=== PATIENT | male | born 1960 | race Caucasian/White ===

== ENCOUNTER 2021-03-31 04:47 | Inpatient (IN) | payer OTHER ==
[2021-03-31] VITALS (9 sets, daily range): BP systolic 89–147; BP diastolic 55–92
[~2021-03-31] VITALS: Ht 177.8 cm; Wt 68.0 kg
[2021-03-31] MEDS ORDERED: CEFTRIAXONE 2 GM in SODIUM CHLORIDE 0.9% 100 ML IV ONE (05:00)
[2021-03-31] MEDS ORDERED: DEXAMETHASONE SOD PHOS 10 MG/1 ML VIAL IV ONE (05:00)
[2021-03-31] MEDS ORDERED: ALBUTEROL SULF 0.083% NEB SOLN 3 ML NEB NEB STA (05:03)
[2021-03-31] MEDS ORDERED: DEXAMETHASONE SOD PHOS 10 MG/1 ML VIAL ONE (05:10)
[2021-03-31] MEDS ORDERED: CEFTRIAXONE 1 GM VIAL ONE (05:11)
[2021-03-31] MEDS ORDERED: SODIUM CHLORIDE 0.9% 250ML 250 ML ONE (05:11)
[2021-03-31] MEDS ORDERED: SODIUM CHLORIDE 0.9% 50ML 50 ML ONE (05:11)
[2021-03-31] MEDS ORDERED: CEFTRIAXONE 2 GM VIAL ONE (05:12)
[2021-03-31] MEDS ORDERED: IPRATROPIUM BROMIDE 0.02% 2.5 ML NEB NEB ONE (05:15)
[2021-03-31] MEDS ORDERED: ALBUTEROL/IPRATROPIUM 3 ML NEB ONE (05:16)
[2021-03-31 05:18] LABS: BASOPHILS # (AUTO) 0.1 (0.0-0.1); BASOPHILS % 0.2 % (0.0-1.0); HEMATOCRIT 40.6 % (38.2-49.6); HEMOGLOBIN 12.9 g/dL (14.0-18.0); LYMPHOCYTES # (AUTO) 1.5 (1.0-3.2); LYMPHOCYTES % 6.7 % (18.0-39.1); MEAN CORPUSCULAR HEMOGLOBIN 30.1 pg (28-32); MEAN CORPUSCULAR HGB CONC 31.8 g/dL (31-35); MEAN CORPUSCULAR VOLUME 94.6 fL (81-99); MONOCYTES # (AUTO) 2.6 (0.2-0.8); MONOCYTES % 11.5 % (4.4-11.3); NEUTROPHILS # (AUTO) 18.1 (2.1-6.9); NEUTROPHILS % 79.8 % (38.7-80.0); PLATELET COUNT 349 x10e3/uL (140-360); RED BLOOD COUNT 4.29 x10e6/uL (4.3-5.7); RED CELL DISTRIBUTION WIDTH 16.4 % (11.7-14.4)
[2021-03-31 05:34] LABS: ALBUMIN 3.5 g/dL (3.5-5.0); ALBUMIN/GLOBULIN RATIO 0.8 (0.8-2.0); ANION GAP 33.8 mmol/L (8-16); CALCIUM 10.5 mg/dL (8.4-10.2); CREATININE, SERUM 2.22 mg/dL (0.72-1.25); POTASSIUM 5.8 mmol/L (3.5-5.1)
[2021-03-31 05:40] LABS: CREATINE KINASE MB 3.6 ng/mL (0-5.0)
[2021-03-31 05:43] LABS: ABG HCO3 16 mmol/L (22-26); ABG PCO2 25 mmHg (35-45); ABG PH 7.41 (7.35-7.45); ABG PO2 232 mmHg (80-105)
[2021-03-31 05:44] LABS: ABG TCO2 17
[2021-03-31] MEDS ORDERED: SODIUM CHLORIDE 0.9% 500ML 500 ML ONE (06:17)
[2021-03-31] MEDS ORDERED: NOREPINEPHRINE 8 MG/D5W 250 ML 250 ML ONE (06:18)
[2021-03-31] MEDS ORDERED: SODIUM CHLORIDE 0.9% 1000ML 1,000 ML IV STA (06:23)
[2021-03-31] MEDS ORDERED: ENOXAPARIN INJ 80 MG/0.8 ML SYR SC STA (06:27)
[2021-03-31 07:11] LABS: INR 1.32; PROTHROMBIN TIME 16.6 seconds (11.9-14.5)
[2021-03-31 07:12] LABS: PARTIAL THROMBOPLASTIN TIME 28.6 seconds (23.8-35.5)
[2021-03-31 07:30] LABS: CLARITY,URINE CLEAR (CLEAR); COLOR,URINE YELLOW (YELLOW); LEUKOCYTE ESTERASE ,URINE NEGATIVE (NEGATIVE); NITRITE,URINE NEGATIVE (NEGATIVE)
[2021-03-31] MEDS ORDERED: SODIUM CHLORIDE 0.9% 1000ML 1,000 ML IV ONE (07:30)
[2021-03-31 07:31] LABS: KETONES,URINE TRACE (NEGATIVE); PROTEIN,URINE DIPSTICK TRACE (NEGATIVE); URINE UROBILINOGEN 0.2 mg/dL (0.2 - 1)
[2021-03-31 07:39] LABS: BACTERIA,URINE RARE /HPF; EPITHELIAL CELLS,URINE FEW /LPF; RBC,URINE 0-5 /HPF (0-5); WBC,URINE (MAN) 0-5 /HPF (0-5)
[2021-03-31] MEDS ORDERED: LIDOCAINE HCL 2% LOCAL 20 ML VIAL ONE ×2 (09:53→10:09)
[2021-03-31] MEDS ORDERED: MIDAZOLAM HCL 2 MG/2 ML VIAL ONE (09:53)
[2021-03-31] MEDS ORDERED: IOPAMIDOL 370 MG/ML 200 ML INFUS..BTL INJ ONE (09:53)
[2021-03-31] MEDS ORDERED: HEPARIN SOD (PORCINE) 1000 UNIT/ML 30ML ONE (09:53)
[2021-03-31] MEDS ORDERED: FENTANYL CITRATE/PF 100MCG/2 ML INJ ONE (09:53)
[2021-03-31] MEDS ORDERED: HEPARIN SOD/SOD CHLORIDE 0 ML ONE (09:53)
[2021-03-31] MEDS ORDERED: SODIUM CHLORIDE 0.9% 1000ML 0 ML ONE (09:54)
[2021-03-31 11:44] LABS: BASOPHILS % 0.2 % (0.0-1.0); HEMATOCRIT 35.3 % (38.2-49.6); HEMOGLOBIN 11.3 g/dL (14.0-18.0); LYMPHOCYTES # (AUTO) 0.8 (1.0-3.2); LYMPHOCYTES % 4.3 % (18.0-39.1); MEAN CORPUSCULAR HEMOGLOBIN 30.3 pg (28-32); MEAN CORPUSCULAR VOLUME 94.6 fL (81-99); MONOCYTES # (AUTO) 1.3 (0.2-0.8); MONOCYTES % 6.9 % (4.4-11.3); NEUTROPHILS # (AUTO) 15.6 (2.1-6.9); NEUTROPHILS % 86.5 % (38.7-80.0); PLATELET COUNT 270 x10e3/uL (140-360); RED BLOOD COUNT 3.73 x10e6/uL (4.3-5.7); RED CELL DISTRIBUTION WIDTH 15.9 % (11.7-14.4)
[2021-03-31] MEDS: ALBUTEROL SULF 0.083% NEB SOLN 3 ML NEB NEB SCH ×4 (12:00→23:00)
[2021-03-31] MEDS: IPRATROPIUM BROMIDE 0.02% 2.5 ML NEB NEB SCH ×3 (12:00→23:00)
[2021-03-31 12:11] LABS: ALBUMIN 3.4 g/dL (3.5-5.0); ALBUMIN/GLOBULIN RATIO 0.9 (0.8-2.0); ANION GAP 28.9 mmol/L (8-16); CALCIUM 9.5 mg/dL (8.4-10.2); CREATININE, SERUM 2.4 mg/dL (0.72-1.25); POTASSIUM 5.9 mmol/L (3.5-5.1)
[2021-03-31 12:35] LABS: CREATINE KINASE MB 4.9 ng/mL (0-5.0)
[2021-03-31 14:32] LABS: BODY FLUID APPEARANCE TURBID; BODY FLUID COLOR RED; BODY FLUID TYPE PERICARDIAL
[2021-03-31 15:06] LABS: CREATINE KINASE MB 7.3 ng/mL (0-5.0)
[2021-03-31 15:09] LABS: RBC,BODY FLUID 3042000 cells/uL; WBC,BODY FLUID 1800 cells/uL
[2021-03-31 15:27] LABS: LYMPHOCYTES,BODY FLUID 47 %; MONO/MACROPHG,BODY FLUID 11 %; NEUTROPHILS,BODY FLUID 42 %
[2021-04-01] VITALS (24 sets, daily range): BP systolic 88–115; BP diastolic 67–82
[2021-04-01] MEDS: ALBUTEROL SULF 0.083% NEB SOLN 3 ML NEB NEB SCH ×2 (02:29→07:48)
[2021-04-01 05:32] LABS: BASOPHILS % 0.2 % (0.0-1.0); HEMATOCRIT 37.7 % (38.2-49.6); HEMOGLOBIN 12.1 g/dL (14.0-18.0); LYMPHOCYTES % 5.7 % (18.0-39.1); MEAN CORPUSCULAR HEMOGLOBIN 30.1 pg (28-32); MEAN CORPUSCULAR HGB CONC 32.1 g/dL (31-35); MEAN CORPUSCULAR VOLUME 93.8 fL (81-99); MONOCYTES # (AUTO) 1.4 (0.2-0.8); MONOCYTES % 7.7 % (4.4-11.3); NEUTROPHILS # (AUTO) 14.9 (2.1-6.9); NEUTROPHILS % 85.1 % (38.7-80.0); PLATELET COUNT 272 x10e3/uL (140-360); RED BLOOD COUNT 4.02 x10e6/uL (4.3-5.7); RED CELL DISTRIBUTION WIDTH 16.9 % (11.7-14.4)
[2021-04-01 06:07] LABS: ALBUMIN/GLOBULIN RATIO 0.8 (0.8-2.0); ANION GAP 24.6 mmol/L (8-16); CALCIUM 9.1 mg/dL (8.4-10.2); POTASSIUM 5.6 mmol/L (3.5-5.1)
[2021-04-01] MEDS: IPRATROPIUM BROMIDE 0.02% 2.5 ML NEB NEB SCH (07:48)
[2021-04-01] MEDS: CEFTRIAXONE 2 GM in SODIUM CHLORIDE 0.9% 100 ML IV SCH (08:14)
[2021-04-01] MEDS ORDERED: ALBUTEROL SULF 0.083% NEB SOLN 3 ML NEB NEB PRN (12:00)
[2021-04-01] MEDS ORDERED: SODIUM CHLORIDE 0.9% 1000ML 1,000 ML IV ONE (12:00)
[2021-04-01] MEDS ORDERED: ACETAMINOPHEN 325 MG TAB PO PRN (12:00)
[2021-04-01] MEDS ORDERED: IPRATROPIUM BROMIDE 0.02% 2.5 ML NEB NEB PRN (12:00)
[2021-04-01] MEDS: LORAZEPAM 0.5 MG TAB PO PRN (19:50)
[2021-04-01] MEDS ORDERED: ZOLPIDEM TARTRATE 5 MG TAB PO PRN (21:00)
[2021-04-02] VITALS (24 sets, daily range): BP systolic 95–111; BP diastolic 54–89
[2021-04-02] MEDS ORDERED: DIGOXIN INJ 0.25 MG/ML 2 ML AMP IV ONE (06:30)
[2021-04-02 06:53] LABS: BASOPHILS % 0.2 % (0.0-1.0); HEMATOCRIT 39.4 % (38.2-49.6); HEMOGLOBIN 12.7 g/dL (14.0-18.0); LYMPHOCYTES # (AUTO) 0.8 (1.0-3.2); MEAN CORPUSCULAR HEMOGLOBIN 30.2 pg (28-32); MEAN CORPUSCULAR HGB CONC 32.2 g/dL (31-35); MEAN CORPUSCULAR VOLUME 93.8 fL (81-99); MONOCYTES # (AUTO) 1.7 (0.2-0.8); MONOCYTES % 8.6 % (4.4-11.3); NEUTROPHILS # (AUTO) 16.7 (2.1-6.9); NEUTROPHILS % 86.1 % (38.7-80.0); PLATELET COUNT 277 x10e3/uL (140-360); RED CELL DISTRIBUTION WIDTH 17.7 % (11.7-14.4)
[2021-04-02 07:09] LABS: ALBUMIN 3.3 g/dL (3.5-5.0); ALBUMIN/GLOBULIN RATIO 1.1 (0.8-2.0); ANION GAP 21.1 mmol/L (8-16); CALCIUM 9.2 mg/dL (8.4-10.2); CREATININE, SERUM 1.42 mg/dL (0.72-1.25); POTASSIUM 5.1 mmol/L (3.5-5.1)
[2021-04-02] MEDS: METOPROLOL TARTRATE 25 MG TAB PO SCH ×3 (07:40→17:49)
[2021-04-02] MEDS: LORAZEPAM 0.5 MG TAB PO PRN (07:40)
[2021-04-02] MEDS: CEFTRIAXONE 2 GM in SODIUM CHLORIDE 0.9% 100 ML IV SCH (07:59)
[2021-04-02] MEDS ORDERED: DIGOXIN INJ 0.25 MG/ML 2 ML AMP IV NR (08:15)
[2021-04-02] MEDS ORDERED: METOPROLOL TARTRATE INJ 1 MG/ML VIAL IV PRN (08:15)
[2021-04-03] VITALS (29 sets, daily range): BP systolic 93–114; BP diastolic 66–84
[2021-04-03] MEDS: METOPROLOL TARTRATE 25 MG TAB PO SCH ×5 (06:00→23:53)
[2021-04-03] MEDS: CEFTRIAXONE 2 GM in SODIUM CHLORIDE 0.9% 100 ML IV SCH (08:57)
[2021-04-03 09:06] LABS: BASOPHILS % 0.2 % (0.0-1.0); HEMATOCRIT 40.7 % (38.2-49.6); HEMOGLOBIN 12.7 g/dL (14.0-18.0); LYMPHOCYTES # (AUTO) 0.7 (1.0-3.2); LYMPHOCYTES % 4.7 % (18.0-39.1); MEAN CORPUSCULAR HGB CONC 31.2 g/dL (31-35); MEAN CORPUSCULAR VOLUME 96.2 fL (81-99); MONOCYTES # (AUTO) 1.2 (0.2-0.8); NEUTROPHILS # (AUTO) 13.3 (2.1-6.9); NEUTROPHILS % 86.3 % (38.7-80.0); PLATELET COUNT 216 x10e3/uL (140-360); RED BLOOD COUNT 4.23 x10e6/uL (4.3-5.7); RED CELL DISTRIBUTION WIDTH 17.9 % (11.7-14.4)
[2021-04-03 09:27] LABS: ALBUMIN/GLOBULIN RATIO 0.9 (0.8-2.0); CREATININE, SERUM 0.96 mg/dL (0.72-1.25)
[2021-04-03 09:50] LABS: INR 1.12; PROTHROMBIN TIME 14.6 seconds (11.9-14.5)
[2021-04-03 09:51] LABS: PARTIAL THROMBOPLASTIN TIME 26.9 seconds (23.8-35.5)
[2021-04-03] MEDS ORDERED: ALBUMIN 25% 25GM 100ML 0.25 GM/ML BTL IV ONE (10:30)
[2021-04-03] MEDS ORDERED: SODIUM CHLORIDE 0.9% 1000ML 1,000 ML ONE ×2 (10:43→13:43)
[2021-04-03] MEDS ORDERED: ALBUMIN 25% 25GM 100ML 100 ML IV ONE (11:00)
[2021-04-03] MEDS ORDERED: BUPIVACAINE 0.25% 30ML SDV ONE (11:03)
[2021-04-03] MEDS ORDERED: LIDOCAINE 1% W/EPINEPHRINE 20 ML VIAL ONE (11:03)
[2021-04-03] MEDS ORDERED: LIDOCAINE HCL 2% LOCAL 20 ML VIAL ONE (11:03)
[2021-04-03] MEDS ORDERED: HEPARIN SOD/SOD CHLORIDE 1,000 ML ONE (11:12)
[2021-04-03] MEDS ORDERED: DIGOXIN INJ 0.25 MG/ML 2 ML AMP IV ONE (11:15)
[2021-04-03] MEDS ORDERED: NOREPINEPHRINE INJ 4MG/4ML 4 ML ONE (12:21)
[2021-04-03] MEDS ORDERED: SUGAMMADEX SODIUM 200 MG/2 ML VIAL IV ONE (13:06)
[2021-04-03] MEDS ORDERED: FENTANYL CITRATE/PF 100MCG/2 ML INJ ONE (13:54)
[2021-04-03] MEDS ORDERED: HYDROMORPHONE 1MG/1ML INJ IV PRN (16:15)
[2021-04-04] VITALS (25 sets, daily range): BP systolic 59–117; BP diastolic 35–82
[2021-04-04 04:55] LABS: BASOPHILS % 0.1 % (0.0-1.0); EOSINOPHILS % 0.1 % (0.0-6.0); HEMOGLOBIN 12.1 g/dL (14.0-18.0); LYMPHOCYTES # (AUTO) 0.6 (1.0-3.2); LYMPHOCYTES % 4.4 % (18.0-39.1); MEAN CORPUSCULAR HEMOGLOBIN 30.3 pg (28-32); MEAN CORPUSCULAR VOLUME 97.7 fL (81-99); MONOCYTES # (AUTO) 1.1 (0.2-0.8); MONOCYTES % 8.3 % (4.4-11.3); NEUTROPHILS # (AUTO) 11.4 (2.1-6.9); NEUTROPHILS % 86.6 % (38.7-80.0); PLATELET COUNT 180 x10e3/uL (140-360); RED BLOOD COUNT 3.99 x10e6/uL (4.3-5.7)
[2021-04-04 05:17] LABS: ALBUMIN 3.2 g/dL (3.5-5.0); ANION GAP 17.5 mmol/L (8-16); CREATININE, SERUM 0.95 mg/dL (0.72-1.25); MAGNESIUM 2.5 MG/DL (1.3-2.1); POTASSIUM 4.5 mmol/L (3.5-5.1)
[2021-04-04] MEDS: METOPROLOL TARTRATE 25 MG TAB PO SCH ×3 (06:00→16:49)
[2021-04-04] MEDS: CEFTRIAXONE 2 GM in SODIUM CHLORIDE 0.9% 100 ML IV SCH (09:00)
[2021-04-04] MEDS: ONDANSETRON HCL INJ 2MG/ML 2ML 2 MG/ML VIAL IV PRN ×2 (15:10→15:49)
[2021-04-04] MEDS ORDERED: NOREPINEPHRINE 8 MG/D5W 250 ML 250 ML IV SCH (17:30)
[2021-04-04] MEDS ORDERED: HYDROMORPHONE 1MG/1ML INJ IV PRN (18:00)
[2021-04-05] VITALS (15 sets, daily range): BP systolic 59–100; BP diastolic 29–81
[2021-04-05] MEDS: METOPROLOL TARTRATE 25 MG TAB PO SCH ×3 (05:15→11:21)
[2021-04-05] MEDS: LORAZEPAM 0.5 MG TAB PO PRN (07:16)
[2021-04-05] MEDS: CEFTRIAXONE 2 GM in SODIUM CHLORIDE 0.9% 100 ML IV SCH (08:08)
[2021-04-05] MEDS ORDERED: DIGOXIN INJ 0.25 MG/ML 2 ML AMP ONE (10:12)
[2021-04-05] MEDS ORDERED: DIGOXIN INJ 0.25 MG/ML 2 ML AMP IV ONE (10:30)
[2021-04-05] MEDS ORDERED: LORAZEPAM INJ 2 MG/ML VIAL IV PRN ×2 (10:45→12:00)
[2021-04-05] MEDS ORDERED: MORPHINE SULFATE INJ 2 MG/ML SYR IV PRN (12:00)
== END 2021-04-05 13:57 | disposition hospice, home (50) | DRG 853 ==
LOC: ER 05:04 → ERHOLD 07:24 → ICU 13:49
PROC: 5A09457 Assistance with Respiratory Ventilation, 24-96 Consecutive Hours, Continuous Positive Airway Pressure (ICD-10-PCS; 2021-03-31)
PROC: 0W9D30Z Drainage of Pericardial Cavity with Drainage Device, Percutaneous Approach (ICD-10-PCS; 2021-03-31)
PROC: 02BN4ZX Excision of Pericardium, Percutaneous Endoscopic Approach, Diagnostic (ICD-10-PCS; 2021-04-03)
PROC: 0W9D40Z Drainage of Pericardial Cavity with Drainage Device, Percutaneous Endoscopic Approach (ICD-10-PCS; principal; 2021-04-03 11:45)
DX: A41.9 Sepsis, unspecified organism (principal); J96.01 Acute respiratory failure with hypoxia; R65.21 Severe sepsis with septic shock; K72.00 Acute and subacute hepatic failure without coma; I21.A1 Myocardial infarction type 2; I30.9 Acute pericarditis, unspecified; E87.2 Acidosis; I87.1 Compression of vein; J91.0 Malignant pleural effusion; C34.91 Malignant neoplasm of unspecified part of right bronchus or lung; J44.9 Chronic obstructive pulmonary disease, unspecified; I51.7 Cardiomegaly; F17.200 Nicotine dependence, unspecified, uncomplicated; Z66 Do not resuscitate; Z20.822 Contact with and (suspected) exposure to COVID-19
CPT/HCPCS: 33016; 36415; 36600; 71045; 71250; 74176; 80053; 81001; 82040; 82550; 82553; 82805; 82945; 83605; 83615; 83735; 83880; 84157; 84484; 85025; 85379; 85610; 85730; 86850; 86900; 87040; 87070; 87086; 87116; 87205; 87206; 88112; 88305; 88342; 89051; 93005; 93306; 93970; 94640; 94660; 99251; 99285; C1769; J0456; J0696; J1100; J1160; J1170; J1644; J1650; J2001; J2060; J2250; J2405; J3010; J7030; J7040; J7050; P9047; Q9967; U0002